=== PATIENT | female | born 1975 | race Caucasian/White ===

== ENCOUNTER → 2017-08-31 08:23 | Outpatient (CLI) | payer OTHER, SELFPAY ==
--- NOTE | 2017-08-31 08:25 | MM_ITS ---
MM Dig screening mamm BI w/CAD CAD Screening COMPARISON: None, this is baseline INDICATION: There is a history of breast cancer patient maternal cousin diagnosed before menopause TECHNIQUE: Standard CC and MLO images were obtained. R2 CAD reviewed. FINDINGS: Mild to moderate fiber glandular densities are seen in the central portions of both breast and the findings are bilateral and symmetrical. This is small benign-appearing nodular density near the axillary tail right breast and a similar small benign-appearing nodular density near the exit tail left breast. These are almost surely low-lying nodes or possibly tiny fibroadenomas. However since is the baseline study recommend the patient return for 6 month follow-up mammograms to assure interval stability. There is no suspicious lesion and no suspicious microcalcifications. IMPRESSION: Moderate breast density with small benign-appearing nodular densities in each breast as described. BI-RADS Category: 3 Benign Finding Short Term Follow-up RECOMMENDED FOLLOW-UP: 6M - 6 MONTH FOLLOW-UP (A letter has been sent to the patient regarding results of the study.)
== END ==
PROVIDERS: Family Provider Family Medicine; PCP Family Medicine; Visit Provider Student in an Organized Health Care Education/Training Program
DX: Z12.31 Encounter for screening mammogram for malignant neoplasm of breast (principal)
CPT/HCPCS: 77067

== ENCOUNTER → 2018-03-30 11:00 | Outpatient (CLI) | payer OTHER, SELFPAY ==
[2018-03-30 11:03] LABS: Microscopic, Urine URINE MICROSCOPIC (MICROSCOPIC)
[2018-03-30 11:07] LABS: Appearance,Urine CLOUDY (Clear); Bilirubin,Urine Negative (Negative); Blood, Urine Negative (Negative); Glucose,Urine (UA) 1+ (Negative); Ketones,Urine Trace (Negative); Nitrate,Urine Positive (Negative); Protein,Urine 2+ (Negative); Urobilinogen,Urine >=8.0 EU/dl (0.2)
[2018-03-30 11:08] LABS: Color,Urine ORANGE (Yellow); Leukocyte Esterase,Urine 2+ (Negative)
[2018-03-30 11:09] LABS: Bacteria,Urine 3+ /lpf; Hyaline Casts,Urine Occasional #/lpf (0); Mucus,Urine Trace /lpf; WBC,Urine 20-50 #/hpf (0-3)
== END ==
PROVIDERS: PCP Family Medicine; Visit Provider Physician Assistant
DX: R30.0 Dysuria (principal)
CPT/HCPCS: 81001; 87086; 87088; 87186

== ENCOUNTER → 2018-04-04 12:57 | Outpatient (CLI) | payer OTHER, SELFPAY ==
--- NOTE | 2018-04-04 | US_ITS ---
. MM Dig mamm BI DX w/CAD, US breast RT complete Ordering Physician: Jonatan Flores MD Patient Age: 43 years: Female HISTORY: ITS.REASON: 6 month dx f/u bilateral COMPARISON :08/31/2017 mammogram six-month bilateral follow-up for mild asymmetric densities DIAGNOSTIC BILATERAL MAMMOGRAM WITH SPOT VIEWS technique. CC and MLO Views of Both Right Left Breast.... Additional CC and MLO and 90 degrees spot views right breast. Also Additional CC and MLO spot views left breast Findings On today's mammogram Spot views show no persistent area of density. Right breast The area questioned the superior right breast dissipates on additional spot views no feature of significant, persistent concern. Subsequent ultrasound here unremarkable.. Left breast minor asymmetry Area of minimal density superior left breast also dissipates on spot views. No areas of significant concern. Overall Stable since prior studies. Can be followed one year. BREAST ULTRASOUND RIGHT BREAST including axillary survey . No suspicious findings at the right breast. There is a tiny cystic 1:00 towards the central breast and nipple. Not of significant orbital concern. 2.5 mm . Size At 10:00 there is a intramammary lymph node which measures up to 6.2 mm length. This correlates to the area on mammogram the peripheral breast. Not of concern. Benign-appearing lymph node. Survey of the deeper axilla shows scattered benign axillary lymph nodes. No areas of concern. ....IMPRESSION: .... . Moderate breast density, mild asymmetry No new areas of concern follow-up in one year Today's Additional mammogram views subsequent right ultrasound decreased concern regarding new findings . Bilateral follow-up in one year be adequate BI-RADS 2 probable benign RECOMMENDATION : 12 MONTH, FOLLOW UP ONE YEAR
== END ==
PROVIDERS: PCP Family Medicine; Visit Provider Nurse Practitioner Obstetrics & Gynecology
DX: R92.2 Inconclusive mammogram (principal)
CPT/HCPCS: 76641; 77066

== ENCOUNTER → 2018-04-05 09:47 | Outpatient (POV) | payer OTHER, SELFPAY | PROVIDERS: Visit Provider Dermatology | DX: Z00.00 Encounter for general adult medical examination without abnormal findings (principal) ==

== ENCOUNTER → 2018-05-02 11:14 | Outpatient (CLI) | payer OTHER, SELFPAY ==
[2018-05-02 12:35] VITALS: PULSE 86
[2018-05-02 13:30] VITALS: PULSE 82
== END ==
PROVIDERS: PCP Family Medicine; Visit Provider Family Medicine
DX: R06.02 Shortness of breath (principal)
CPT/HCPCS: 94060; 94640; 94726; 94729